=== PATIENT | male | born 1965 | race Caucasian/White ===

== ENCOUNTER 2019-12-08 05:10 | Day surgery (SDC) | payer OTHER, BC ==
[~2019-12-08] VITALS: Ht 188 cm; Wt 90.7 kg
[2019-12-08] VITALS (9 sets, daily range): BP systolic 109–120; BP diastolic 67–78
[~2019-12-08 05:10] MED LIST: ATORVASTATIN CA10 MG ORAL; CIALIS2.5 MG ORAL; FLOMAX0.4 MG ORAL; IRON325 M1 PO; MULTIVITAMINS1 EAC2 ORAL; OMEPRAZOLE20 M2 ORAL
[2019-12-08] MEDS ORDERED: Clindamycin 600mg/D5W 50ml IV ONE (06:00)
[2019-12-08] MEDS ORDERED: celeBREX 200mg Cap **SURGERY PATIENTS ONLY ORAL ONE (06:00)
[2019-12-08] MEDS ORDERED: oxyCONTIN 20mg tab ORAL ONE (06:00)
[2019-12-08] MEDS ORDERED: Sterile Water Irrig 1000ml IRRIG ONE (07:00)
[2019-12-08] MEDS ORDERED: LR 1000ml ONE (07:00)
[2019-12-08] MEDS ORDERED: Bupivacaine 0.25% Inj 30ml INJ ONE (07:15)
[2019-12-08] MEDS ORDERED: Lidocaine 1% Plain 30 ml INJ ONE (07:24)
--- NOTE | 2019-12-08 07:24 | Pre-Procedure Note/Attestation ---
Pre-Procedure Note/Attestation Complete Prior to Procedure Planned Procedure: left Procedure Narrative: carpel tunnel release Indications for Procedure Pre-Operative Diagnosis: left wrist carpel tunnel Attestation I attest that I discussed the nature of the procedure; its benefits; risks and complications; and alternatives (and the risks and benefits of such alternatives), prior to the procedure, with the patient (or the patient's legal field sales representative). I attest that, if there was a reasonable possibility of needing a blood transfusion, the patient (or the patient's legal field sales representative) was given the [facility] standardized written summary, pursuant to the Nikita Imbery Blood Safety Act ([place] Health and Safety Code # 1645, as amended). I attest that I re-evaluated the patient just prior to the surgery and that there has been no change in the patient's H&P, except as documented below: Momo Manuel MD Dec 08, 2019 07:24
--- NOTE | 2019-12-08 07:25 | Operative Note - PDOC ---
Operative Note Operative Note Pre-op Diagnosis: left wrist carpel tunnel Procedure: see op report Post-op Diagnosis: same as pre-op plus Operative Findings: consistent w/pre-op dx studies Anesthesia: MAC Specimen: none Complications: none Condition: stable Estimated Blood Loss: none Implant(s) used?: No Momo Manuel MD Dec 08, 2019 07:25
[2019-12-08] MEDS ORDERED: HYDROmorphone 1mg/ml Carpuject SUBQ PRN (07:30)
[2019-12-08] MEDS ORDERED: Tylenol #3 tab (300mg/30mg) ORAL PRN (07:30)
[2019-12-08] MEDS ORDERED: HYDROcodone/Acetamin 5/325 tab ORAL PRN ×2 (07:30→08:30)
[2019-12-08] MEDS ORDERED: NS Irrig 1000ml IRRIG ONE (07:41)
--- NOTE | 2019-12-08 07:55 | Anethesia Preoperative Eval ---
Anesthesia Pre-op PMH/ROS General Date of Evaluation: Dec 08, 2019 Time of Evaluation: 07:01 Anesthesiologist: Magnus ASA Score: ASA 2 Mallampati Score Class I : Soft palate, uvula, fauces, pillars visible Class II: Soft palate, uvula, fauces visible Class III: Soft palate, base of uvula visible Class IV: Only hard plate visible Mallampati Classification: Class II Surgeon: Kaleb Diagnosis: L Carpal Tunnel Surgical Procedure: L Carpal Tunnel Release Anesthesia History: none Family History: no anesthesia problems Allergies: Coded Allergies: PENICILLINS (Verified Allergy, Mild, rash, 12/06/19) Medications: see eMAR Patient NPO?: Yes Past Medical History Cardiovascular: Reports: other - HL Gastrointestinal/Genitourinary: Reports: GERD PSxH Narrative: L Knee SX, R Carpal Tunnel Release Anesthesia Pre-op Phys. Exam Physician Exam Last Vital Signs Date Time Temp Pulse Resp B/P (MAP) Pulse Ox O2 Delivery O2 Flow Rate FiO2 12/08/19 05:36 Room Air 12/08/19 05:36 97.4 55 18 111/67 98 Constitutional: NAD Neurologic: CN 2-12 intact Cardiovascular: RRR Respiratory: CTA Gastrointestinal: S/NT/ND Airway Exam Mallampati Score: Class II MO: full ROM: full Teeth: missing, intact Anesthesia Pre-op A/P Risk Assessment & Plan Assessment: ASA 2 Plan: TIVA Status Change Before Surgery: No Pre-Antibiotics Dru Grams Ancef IV Given Within 1 Hr of Incision: Yes Time Given: 07:16 Aram Agudelo MD Dec 08, 2019 07:55
--- NOTE | 2019-12-08 07:58 | 48 Hour Post Anesthesia Eval ---
Post Anesthesia Evaluation Procedure: L Carpal Tunnel Release Date of Evaluation: Dec 08, 2019 Time of Evaluation: 10:43 Blood Pressure Systolic: 115 0: 73 Pulse Rate: 58 Respiratory Rate: 18 Temperature (Fahrenheit): 98 O2 Sat by Pulse Oximetry: 100 Airway: patent Nausea: No Vomiting: No Pain Intensity: 1 Hydration Status: adequate Cardiopulmonary Status: Stable Mental Status/LOC: patient returned to baseline Follow-up Care/Observations: 0 Post-Anesthesia Complications: 0 Follow-up care needed: ready to discharge Aram Agudelo MD Dec 08, 2019 07:58
--- NOTE | 2019-12-08 07:58 | Immediate Post-Op Evaluation ---
Immediate Post-Op Evalulation Immediate Post-Op Evalulation Procedure: L Carpal Tunnel Release Date of Evaluation: Dec 08, 2019 Time of Evaluation: 08:32 IV Fluids: 1000 LR Blood Products: 0 Estimated Blood Loss: 10 Urinary Output: 0 Blood Pressure Systolic: 114 Blood Pressure Diastolic: 74 Pulse Rate: 59 Respiratory Rate: 16 O2 Sat by Pulse Oximetry: 100 Temperature (Fahrenheit): 97.1 Pain Score (1-10): 1 Nausea: No Vomiting: No Complications 0 Patient Status: awake, reacts, patent, none Hydration Status: adequate Dru Grams Ancef IV Given Within 1 Hr of Incision: Yes Time Given: 07:16 Aram Agudelo MD Dec 08, 2019 07:58
[2019-12-08] MEDS ORDERED: Lidocaine 1% MPF 10mg/ml 5ml ONE (08:01)
[2019-12-08] MEDS ORDERED: fentaNYL 100 mcg/2 mL IV PRN (08:30)
[2019-12-08] MEDS ORDERED: oxyCODONE HCL/Acetaminophen 5/325mg ORAL PRN (08:30)
[2019-12-08] MEDS ORDERED: LR 1000ml 1,000 ML IVLG SCH (08:30)
[2019-12-08] MEDS ORDERED: Midazolam 2mg/2ml Inj IVP PRN (08:30)
[2019-12-08] MEDS ORDERED: Metoclopramide 10mg/2ml Inj IVP PRN (08:30)
[2019-12-08] MEDS ORDERED: DiphenhydrAMINE 50mg/ml Inj IVP PRN (08:30)
[2019-12-08] MEDS ORDERED: Hydromorphone 0.5mg/0.5ml inj IVP PRN (08:30)
[2019-12-08] MEDS ORDERED: Ketorolac 30mg Inj IV PRN ×2 (08:30)
[2019-12-08] MEDS ORDERED: HYDROcodone/Acetamin 7.5/325 tab ORAL PRN (08:30)
[2019-12-08] MEDS ORDERED: Atropine Sulfate 0.4mg/ml inj IVP PRN (08:30)
[2019-12-08] MEDS ORDERED: Labetalol 5mg/ml 20ml vial IV PRN (08:30)
[2019-12-08] MEDS ORDERED: LORazepam Inj 2mg/ml 1ml IV PRN (08:30)
[2019-12-08] MEDS ORDERED: Meperidine 25mg/0.5ml Inj (FOR RIGORS ONLY) IV PRN (08:30)
[2019-12-08] MEDS ORDERED: D5 1/2NS 1,000 ML IV SCH (12:00)
--- NOTE | 2019-12-08 12:29 | Operative Note - Dictated ---
DATE OF OPERATION: 12/08/2019 NOTE: INCOMPLETE DICTATION. PREOPERATIVE DIAGNOSIS: Left carpal tunnel syndrome. POSTOPERATIVE DIAGNOSIS: Left carpal tunnel syndrome. PROCEDURES: 1. Left wrist decompression median nerve (carpal tunnel release). 2. Tenosynovectomy of flexor tendon, left wrist. SURGEON: Momo Manuel MD. ANESTHESIA: MAC. INDICATION FOR PROCEDURE: The patient is a 54-year-old gentleman with progressive bilateral hand numbness and tingling . Momo Manuel M.D. DR: WIN JOB#: [id number] CC:
--- NOTE | 2019-12-08 14:44 | Operative Note - Dictated ---
DATE OF OPERATION: 12/08/2019 PREOPERATIVE DIAGNOSIS: Left carpal tunnel syndrome. POSTOPERATIVE DIAGNOSIS: Left carpal tunnel syndrome. PROCEDURE: 1. Left wrist release median nerve (carpal tunnel release). 2. Synovectomy, left wrist flexor tendon. SURGEON: Momo Manuel MD. ANESTHESIA: General. INDICATION FOR PROCEDURE: The patient is a pleasant gentleman who has had progressive bilateral hand numbness and tingling, underwent right carpal tunnel release with very good results, elected to undergo similarly left carpal tunnel release. Risks, limitations, expectations, and complications of procedure were discussed in detail. All questions addressed. DESCRIPTION OF PROCEDURE: After informed consent was obtained, the patient was brought to the operating room. The patient was placed under sedation. Left arm was prepped and draped in a sterile manner. Time-out was performed. carpal tunnel was identified. Esmarch was used to exsanguinate the extremity. Skin was incised. Palmar fascia was dissected down to visualize the transverse carpal tunnel. Ligament was then incised. Once the carpal tunnel was entered using tenotomy scissors, the transverse carpal tunnel was released proximally and distally. Once adequate release was confirmed, synovectomy of flexor tendon was performed. carpal tunnel. Once that was done, it was copiously irrigated. Skin was approximated using inverted nylon sutures. Compression dressing was applied. ESTIMATED BLOOD LOSS: None. COMPLICATIONS: None. SPECIMENS: None. IMPLANTS: None. Momo Manuel M.D. DR: JO JOB#: [id number] CC:
== END 2019-12-08 11:25 | disposition home or self-care (01) ==
LOC: SUR 05:10
DX: G56.02 Carpal tunnel syndrome, left upper limb (principal); Z88.0 Allergy status to penicillin; K21.9 Gastro-esophageal reflux disease without esophagitis
CPT/HCPCS: 25115; 64721; 94003; J0690; J2001; J2250; J2704; J3490; J7120; U0002; 94150